=== PATIENT | female | born 1950 | race Caucasian/White ===

== ENCOUNTER → 2019-05-12 | Outpatient (CLI) | payer MEDICARE ==
--- NOTE | 2019-05-12 09:57 | PCVCIMAG ---
EXAM: BILATERAL SUPERFICIAL VENOUS DUPLEX INDICATION: Leg pain and swelling. FINDINGS: Right leg: No thrombus in the common femoral, main femoral, or popliteal veins. These veins are compressible. Right Great Saphenous Vein: At the saphenofemoral junction the diameter is 6.0 mm, in the mid thigh it is 9.1 mm, and in the calf it is 12.2 mm. There is significant venous insufficiency/reflux throughout. Venous insufficiency/reflux duration is 3.8 seconds. Right Small Saphenous Vein: At the saphenopopliteal junction the diameter is 6.0 mm, and in the calf it is 7.3 mm. There is significant venous insufficiency/reflux throughout. Venous insufficiency/reflux duration is 1.5 seconds. There is not a cranial extension present. Left leg: No thrombus in the common femoral, main femoral, or popliteal veins. These veins are compressible. Left Great Saphenous Vein: At the saphenofemoral junction the diameter is 7.3 mm, in the mid thigh it is 6.8 mm, and in the calf it is 6.5 mm. There is significant venous insufficiency/reflux throughout. Venous insufficiency/reflux duration is 3.0 seconds. Left Small Saphenous Vein: At the saphenopopliteal junction the diameter is 3.6 mm, and in the calf it is 4.0 mm. There is not significant venous insufficiency/reflux throughout. Venous insufficiency/reflux duration is 0.2 seconds. There is a cranial extension present. IMPRESSION: Right Great Saphenous Vein: Significant venous insufficiency/reflux is present as noted above. Right Small Saphenous Vein: Significant venous insufficiency/reflux is present as noted above. Left Great Saphenous Vein: Significant venous insufficiency/reflux is present as noted above. Left Small Saphenous Vein: No significant venous insufficiency/reflux is present as noted above. LOC:[id number]
--- NOTE | 2019-05-12 11:55 | PCVCIMAG ---
EXAM: BILATERAL LOWER EXTREMITY ARTERIAL DUPLEX INDICATION: Peripheral Arterial Disease. Leg pain. FINDINGS: Right Leg: Common femoral and profunda femoral arteries are patent. 70-80% stenosis mid [place] superficial femoral artery. Popliteal artery is patent. The anterior tibial, peroneal, posterior tibial arteries are patent. Left Leg: Common femoral and profunda femoral arteries are patent. 70-80% stenosis mid [place] superficial femoral artery. Popliteal artery is patent. The anterior tibial, peroneal, posterior tibial arteries are patent. IMPRESSION: 70-80% stenosis mid [place] right superficial femoral artery. 70-80% stenosis mid [place] left superficial femoral artery. LOC:[id number]
== END | disposition home or self-care (01) ==
LOC: PCVCIMAG 09:21
PROVIDERS: ATTEND Nuclear Medicine Nuclear Cardiology
DX: I87.2 Venous insufficiency (chronic) (peripheral) (principal); G89.29 Other chronic pain; I65.23 Occlusion and stenosis of bilateral carotid arteries; R60.0 Localized edema; Z87.891 Personal history of nicotine dependence
CPT/HCPCS: 93925; 93970; G0463